=== PATIENT | male | born 1990 | race Two or more races ===

== ENCOUNTER 2020-09-19 18:02 | Emergency (ER) | payer SELFPAY ==
[2020-09-19 20:15] LABS: HEMOGLOBIN 15.7 gm/dl (14.0-17.5); RED BLOOD COUNT 4.86 M/UL (4.20-5.50); WHITE BLOOD COUNT 7.4 K/UL (4.5-11.0)
[2020-09-19 20:19] LABS: BUN/CREATININE RATIO 11 (0-10)
[2020-09-19] MEDS ORDERED: ZOFRAN ODT 4 MG4 MG PO (23:02)
== END 2020-09-19 23:05 | disposition home or self-care (01) ==
LOC: ER1 18:02
PROVIDERS: Physician Assistant
DX: R19.7 Diarrhea, unspecified (principal)
CPT/HCPCS: 80053; 83690; 85025; 93005; 99284